=== PATIENT | female | born 1980 | race Caucasian/White ===

== ENCOUNTER 2018-02-08 15:39 | Outpatient (CLI) | payer OTHER ==
[2018-02-08 16:42] LABS: Hemoglobin 9.9 g/dL (12.0-16.0); Mean Corpuscular HGB CONC 29.8 g/dL (32.0-36.0); Mean Corpuscular Hemoglobin 21.2 pg (27.0-31.0); Mean Corpuscular Volume 71.1 fL (78.0-98.0); Mean Platelet Volume 7.9 fL (7.4-10.4); Platelet Count 478 thou/uL (130-400); RBC Distribution Width 14.2 % (11.5-14.5); Red Blood Cell (RBC) Count 4.65 mill/uL (4.20-5.40); White Blood Cell (WBC) Count 7.7 thou/uL (4.8-10.8)
[2018-02-08 16:58] LABS: Anion Gap 10 mmol/L (10-20); BHCG - Serum Negative (NEGATIVE); BUN (Urea Nitrogen) 17 mg/dL (7.0-18.7); Calc. Creatinine Clearance 0 mL/min (70-130); Calcium 9.2 mg/dL (7.8-10.44); Carbon Dioxide 23 mmol/L (22-29); Chloride 107 mmol/L (98-107); Estimated GFR-MDRD 86; Glucose 84 mg/dL (70-105); Potassium 3.9 mmol/L (3.5-5.1); Pregs Control Background? CLEAR/WHITE (CLR/WHITE); Pregs Control Bar Appear? YES (CONTROL BAR); Sodium 136 mmol/L (136-145)
== END 2018-02-08 15:40 | disposition home or self-care (01) ==
LOC: LABBT 15:39
PROVIDERS: ATTEND Obstetrics & Gynecology
DX: Z01.812 Encounter for preprocedural laboratory examination (principal); R10.2 Pelvic and perineal pain; D25.9 Leiomyoma of uterus, unspecified; D64.9 Anemia, unspecified; N92.0 Excessive and frequent menstruation with regular cycle; N94.6 Dysmenorrhea, unspecified
CPT/HCPCS: 80048; 84703; 85027; 86850; 86900; 86901

== ENCOUNTER 2018-02-15 08:47 | Day surgery (SDC) | payer OTHER ==
[2018-02-08 16:00] VITALS: BMI 41.1
[2018-02-15] MEDS ORDERED: Famotidine/PF 20 mg/2ml Vial ONE (09:15)
[2018-02-15] MEDS ORDERED: Gabapentin 300 MG CAP ONE (09:15)
[2018-02-15] MEDS ORDERED: CEFAZOLIN 2 GM/50 ML BAG ONE (09:16)
[2018-02-15] MEDS ORDERED: CeleCOXIB 100 MG CAP ONE (09:21)
[2018-02-15] MEDS ORDERED: CeleCOXIB 100 MG CAP PO SCH (09:30)
[2018-02-15] MEDS ORDERED: Ropivacaine HCl/PF 750 ML in Premix Bag 1 BAG NERVE BLCK SCH (09:30)
[2018-02-15] MEDS ORDERED: Bupivacaine HCl 0.5%/Epinephrine 1:200,000/PF 30 ml Vial ONE (09:31)
[2018-02-15] MEDS ORDERED: Fentanyl 100 MCG/2 ML VIAL ONE (09:32)
[2018-02-15] MEDS ORDERED: Midazolam HCl 2 mg/2 ml Vial ONE (09:45)
[2018-02-15] MEDS ORDERED: Clindamycin/D5W 900 mg/50 ml Premix Bag ONE (09:46)
[2018-02-15] MEDS ORDERED: Levofloxacin 500 mg/D5W 100 ml Premix Bag ONE (09:46)
[2018-02-15] MEDS ORDERED: Bisacodyl 10 MG SUPP PR PRN (13:04)
[2018-02-15] MEDS ORDERED: Ondansetron PF 4 MG/2 ML Vial IVP PRN (13:04)
[2018-02-15] MEDS ORDERED: Zolpidem Tartrate 5 MG TAB PO PRN (13:04)
[2018-02-15] MEDS ORDERED: HYDROcodone/Acetaminophen 5/325 mg Tablet PO PRN (13:04)
[2018-02-15] MEDS ORDERED: Morphine 2 MG/ML SYRINGE SLOW IVP PRN (13:04)
[2018-02-15] MEDS ORDERED: Promethazine HCl 25 MG/ML VIAL IM PRN (13:04)
[2018-02-15] MEDS ORDERED: Simethicone Chewable 80 MG TAB PO PRN (13:04)
[2018-02-15] MEDS ORDERED: diphenhydrAMINE 25 MG CAP PO PRN (13:04)
[2018-02-15] MEDS ORDERED: PHENYLEPHRINE-NS 100 MCG/ML 10 ML SYRINGE ONE (13:42)
[2018-02-15] MEDS ORDERED: Ondansetron PF 4 MG/2 ML Vial ONE (13:42)
[2018-02-15] MEDS ORDERED: Dexamethasone 20 MG/5 ML VIAL ONE (13:42)
[2018-02-15] MEDS ORDERED: Ketorolac Tromethamine 30 MG/ML VIAL ONE (13:42)
[2018-02-15] MEDS ORDERED: PROPOFOL 200 MG/20 ML VIAL ONE (13:42)
--- NOTE | 2018-02-15 14:06 | OP ---
PREOPERATIVE DIAGNOSES: 1. Abnormal uterine bleeding. 2. Uterine fibroid. 3. Dysmenorrhea. 4. Anemia. POSTOPERATIVE DIAGNOSES: 1. Abnormal uterine bleeding. 2. Uterine fibroid. 3. Dysmenorrhea. 4. Anemia. PROCEDURES PERFORMED: 1. Robotic assisted total laparoscopic hysterectomy with bilateral salpingectomy and lysis of adhesi ons. 2. ON-Q pump placement. SURGEON: Isidra Gould D.O. ADMITTING COORDINATOR: Paulo Ott M.D. ESTIMATED BLOOD LOSS: 100 mL IV FLUIDS: 1200 mL URINE OUTPUT: 175 mL FINDINGS: Normal appearing external genitalia, normal vaginal and cervical epithelium. Uterus appro ximately 10 cm in length with an intramural fibroid, normal appearing ovaries and evidence of a prior tubal ligation with normal appearing fallopian tubes, severe adhesions from the dome of the bladder to the lower uterine segment from her prior deliveries, dense omental adhesions to the anter ior abdominal wall. INDICATIONS FOR THE PROCEDURE: Ms. Lea Contreras is a 37-year-old G2, P2 who presented with compl aints of longstanding heavy menstrual cycle with intermenstrual bleeding. The patient underwent sono gram and was found to have uterine fibroid. She was counseled on her treatment options and desired d efinitive surgical treatment with hysterectomy. The patient was counseled on risks, benefits, altern atives, and indications for the procedure. She desired ovarian conservation. PROCEDURE IN DETAIL: The patient was brought to the operating room and she was placed under general anesthesia. The patient was placed in dorsal lithotomy position using Yellofin stirrups. She was pr epped and draped in a sterile fashion. She was given Levaquin and clindamycin for surgical prophylax is. A single-sided speculum was placed in the vagina. Anterior aspect of the cervix was grasped usi ng a single tooth tenaculum. The cervix was sequentially dilated using Kavon dilators. The MILTON uter ine manipulator was then inserted and appropriately secured to the ectocervix. The remaining instrum ents were removed from the vagina. Gloves were exchanged and attention was turned to the abdominal p ortion. A supraumbilical incision was made using the scalpel and a Veress needle was inserted into t he peritoneal cavity noting a normal pressure. The 12 mm trocar was then inserted at this site. The robotic camera was then inserted and the patient was placed in Trendelenburg position. The pelvis a nd abdomen were evaluated noting dense omental adhesion to the anterior abdominal wall and then the f indings in the pelvis which were described earlier. The robotic ports were placed under direct visua lization using 8 mm ports and a local anesthetic. An additional 11 mm trocar was also placed on the right aspect of the abdomen, also under direct visualization with local anesthesia. The robot was th en appropriately docked to the patient and instruments were inserted. The omentum that was adhered t o the anterior abdominal wall was transected using both monopolar and bipolar device creating hemosta sis, which allowed for improved visualization of the pelvic cavity. The adhesions along the left angelo e of the pelvic cavity from the anterior abdominal peritoneum to lower uterine segment were bluntly a nd sharply dissected to allow for identification of the left round ligament. The left round ligament was then coagulated multiple times and transected. The distal portion of the fallopian tube that wa s still remaining on the ovary was then elevated, coagulated beneath and then transected and removed completely. The left utero-ovarian ligament was then coagulated multiple times and transected allowi ng entrance into the peritoneum on the posterior aspect. The posterior peritoneum was transected fro m the level of the uterosacral ligament. The ureter was identified and it is complete course through out this process, the adhesions on the anterior aspect were severe on the left aspect. Meticulous di ssection was performed to allow for the broad ligament to be dissected on the left aspect to inferior ly reflect the bladder and the bladder did require backfill several times to allow for identification of what was adhesive disease versus well as the bladder dome. The left uterine vessels were then fu rther skeletonized and coagulated. The attention was then turned over to the right aspect where the right salpingectomy was performed working distally to proximally completely removing the fallopian tu be, the right round ligament was then coagulated multiple times and transected. The anterior leaf of the broad ligament was undermined and transected on the right side also working meticulously as ther e was scar on the right side as well. The utero-ovarian ligament was coagulated multiple times and t ransected and the posterior peritoneum was reflected down towards the level of the uterosacral ligame nt also noting a complete course of the ureter as well. The bladder reflexion required extensive dis section due to the scar tissue that took additional time throughout the procedure. Again, the bladde r was backfilled multiple times to allow for identification of the bladder dome during this process. Once the bladder was completely inferiorly reflected, the right uterine vessels were then coagulated multiple times and transected and then the left uterine vessels were also coagulated multiple times and transected. The colpotomy was performed in a circumferential fashion, completely removing the ut erus and cervix away from the vaginal tissue. The MILTON manipulator uterus and cervix were then deliv ered through the vagina. The pelvis was irrigated and cleared of all clot and debris. There were sm all areas of bleeding along the left and posterior aspect of the cuff, which were controlled using bi polar cautery and the cuff was closed in a running fashion using 2-0 Stratafix suture. Tisseel was p laced along the cuff for improved hemostasis. The pressure was decreased prior to this noting no ble eding along the cuff or the pedicle sites. The ON-Q pump was then inserted and placed into the pelvi s and appropriately secured. All instruments were removed. The robot was undocked from the patient. The abdomen was deflated. The trocars were removed. The patient was taken out of Trendelenburg po sition. The midline trocar was closed, closing the deepest tissue that was able to be reapproximated . It was difficult to completely incorporate the fascia due to her obesity. The skin was closed usi ng 4-0 Monocryl and Dermabond. The patient tolerated the procedure well. There were no complication s. All counts were correct x2.
[2018-02-15] MEDS: Lactated Ringer's 1,000 ML IV SCH ×3 (15:42→20:33)
[2018-02-15] MEDS: Ibuprofen 800 MG TAB PO SCH ×2 (16:09→17:18)
[2018-02-15] MEDS: HYDROcodone/Acetaminophen 5/325 mg Tablet PO PRN (17:19)
[2018-02-16] MEDS: Ibuprofen 800 MG TAB PO SCH (05:16)
[2018-02-16 05:20] VITALS: TEMP 98.2
[2018-02-16 06:27] LABS: #Lymphocytes 2.2 thou/uL (1.20-3.40); #Monocytes 1.2 thou/uL (0.11-0.59); #Neutrophils 7.3 thou/uL (1.40-6.50); %Basophils 0.2 % (0.0-1.0); %Eosinophils 0.4 % (0.0-10.0); %Lymphocytes 20.4 % (21.0-51.0); %Monocytes 11.2 % (0.0-10.0); %Neutrophils 67.8 % (42.0-75.0); Mean Corpuscular HGB CONC 30.2 g/dL (32.0-36.0); Mean Corpuscular Hemoglobin 21.7 pg (27.0-31.0); Mean Corpuscular Volume 71.7 fL (78.0-98.0); Mean Platelet Volume 7.8 fL (7.4-10.4); Platelet Count 434 thou/uL (130-400); RBC Distribution Width 14.5 % (11.5-14.5); Red Blood Cell (RBC) Count 4.15 mill/uL (4.20-5.40); White Blood Cell (WBC) Count 10.8 thou/uL (4.8-10.8)
[2018-02-16 07:00] LABS: Anion Gap 10 mmol/L (10-20); BUN (Urea Nitrogen) 12 mg/dL (7.0-18.7); Calc. Creatinine Clearance 189 mL/min (70-130); Calcium 8.8 mg/dL (7.8-10.44); Carbon Dioxide 23 mmol/L (22-29); Chloride 108 mmol/L (98-107); Estimated GFR-MDRD 87; Glucose 89 mg/dL (70-105); Potassium 3.9 mmol/L (3.5-5.1); Sodium 137 mmol/L (136-145)
[2018-02-16] MEDS: HYDROcodone/Acetaminophen 5/325 mg Tablet PO PRN (07:19)
[2018-02-16 07:52] VITALS: BP 138/71
[2018-02-16] MEDS: Lactated Ringer's 1,000 ML IV SCH (07:54)
--- NOTE | 2018-02-16 10:56 | PRG ---
DATE OF SERVICE: 02/16/2018 She is postoperative day #1, status post robotic-assisted total laparoscopic hysterectomy with a bila teral salpingectomy and lysis of adhesions SUBJECTIVE: The patient reports moderate pain improved with oral medications. Denies any vaginal bl eeding. She is ambulating, voiding, passing flatus and tolerating oral intake. OBJECTIVE: VITAL SIGNS: Blood pressure 138/71, oxygen saturation 99% on room air, respiratory rate is 20, pulse is 81, and temperature is 98.2. CARDIOVASCULAR: Regular rate. RESPIRATORY: Unlabored breathing. ABDOMEN: Soft, mild distention is appropriate for postop and also mild tenderness. Incision is arabella n, dry, and intact. ON-Q pump appropriately secured. EXTREMITIES: No edema. Negative Homans'. LABORATORY DATA: White blood cell count 10.8, hemoglobin 9, hematocrit 29.7, platelet is 434, creati nine is 0.75. ASSESSMENT: 1. Postoperative day #1 status post robotic-assisted total laparoscopic hysterectomy with a bilatera l salpingectomy and lysis of adhesions. 2. Chronic iron deficiency anemia related to abnormal uterine bleeding. PLAN: The patient has met all requirements for discharge home today. We will plan for discharge wit h follow up in 2 weeks. [place] and Motrin were given for postoperative pain. The patient was encoura ged to restart iron supplementation.
--- NOTE | 2018-02-16 11:04 | DIS ---
DATE OF ADMISSION: 02/15/2018 DATE OF DISCHARGE: 02/16/2018 ADMISSION DIAGNOSES: Postoperative pain control, status post robotic-assisted total laparoscopic hys terectomy with a bilateral salpingectomy and lysis of adhesions. DISCHARGE DIAGNOSES: Postoperative pain control, status post robotic-assisted total laparoscopic hys terectomy with a bilateral salpingectomy and lysis of adhesions. ADMISSION AND DISCHARGE PHYSICIAN: Isidra Gould D.O. BRIEF HOSPITAL COURSE: Ms. Lea Contreras is a 37-year-old female, postoperative day #1, status po st robotic-assisted total laparoscopic hysterectomy and bilateral salpingectomy and lysis of adhesion s. Her intraoperative and postoperative course have been benign. Her exam, labs, and vitals are all stable. She is meeting all requirements for discharge home. CODE: FULL. DIET: Regular. ACTIVITY RESTRICTIONS: Pelvic rest, no heavy lifting or pushing or pulling for 6 weeks. MEDICATIONS: 1. [place] 5/325 mg 1 tablet every 6 hours p.r.n. pain, #30 with 0 refills. 2. Motrin 800 mg 1 every 8 hours p.r.n. pain, #60 with 0 refills. Both medications have been sent to the pharmacy. Follow up in 2 weeks.
== END 2018-02-16 09:40 | disposition home or self-care (01) ==
LOC: SDC 08:47 → 3SE 15:10 → EEVIPCON 17:00 → EDSTATUS 17:00 → SDC 02-16 09:40
PROVIDERS: ATTEND Obstetrics & Gynecology
PROC: 0UT74ZZ Resection of Bilateral Fallopian Tubes, Percutaneous Endoscopic Approach (ICD-10-PCS; principal; 2018-02-16)
PROC: 0UT94ZZ Resection of Uterus, Percutaneous Endoscopic Approach (ICD-10-PCS; principal; 2018-02-16)
DX: N72 Inflammatory disease of cervix uteri (principal); N80.0 Endometriosis of uterus; N83.8 Other noninflammatory disorders of ovary, fallopian tube and broad ligament; D25.9 Leiomyoma of uterus, unspecified; N73.6 Female pelvic peritoneal adhesions (postinfective); G89.29 Other chronic pain; R10.2 Pelvic and perineal pain; N93.9 Abnormal uterine and vaginal bleeding, unspecified; D50.0 Iron deficiency anemia secondary to blood loss (chronic); Z88.0 Allergy status to penicillin
CPT/HCPCS: 36415; 80048; 85025; 88307; J0131; J0670; J1100; J1885; J1956; J2250; J2405; J2704; J2795; J3010; J3490; S0028